=== PATIENT | male | born 1980 | race Caucasian/White ===

== ENCOUNTER 2021-03-12 03:37 | Emergency (ER) | payer OTHER ==
[2021-03-12 03:52] VITALS: BP 121/71; PULSE 62; TEMP 98.2; BMI 26.6
[2021-03-12 05:23] LABS: HEMATOCRIT 43.8 % (35.4-49); HEMOGLOBIN 15.5 GM/dL (11.7-16.9); MCH 30.4 pg (25.7-33.7); MCHC 35.4 g/dl (32.0-35.9); MEAN CELL VOLUME 85.7 fl (80-96); MEAN PLT VOLUME 9.9 fl (7.5-11.1); PLATELET COUNT 131 10^3/uL (134-434); RBC 5.11 M/mm3 (4.00-5.60); RDW 13.6 % (11.9-15.9); WHITE BLOOD COUNT 7.1 K/mm3 (4.0-10.0)
[2021-03-12 05:32] LABS: CHLORIDE 106 mmol/L (98-107); SODIUM 140 mmol/L (136-145)
[2021-03-12 05:34] LABS: ALBUMIN 3.9 g/dl (3.4-5.0); ANION GAP 7 MMOL/L (8-16); BLOOD UREA NITROGEN 15.5 mg/dL (7-18); CALCIUM 8.9 mg/dL (8.5-10.1); CO2 28 mmol/L (21-32); GLUCOSE,RANDOM 96 mg/dL (74-106)
[2021-03-12 05:38] LABS: CREATININE 0.8 mg/dL (0.55-1.3); SGOT/AST 21 U/L (15-37); SGPT/ALT 39 U/L (13-61)
[2021-03-12 05:39] LABS: BILIRUBIN,TOTAL 0.2 mg/dL (0.2-1)
[2021-03-12 05:40] LABS: TOT PROT 7.1 g/dl (6.4-8.2)
[2021-03-12 05:41] LABS: ALK PHOS 124 U/L (45-117)
== END 2021-03-12 06:15 | disposition home or self-care (01) ==
LOC: JER 03:37
DX: R00.2 Palpitations (principal)
CPT/HCPCS: 36415; 71046-TC-FY; 80053; 82550; 82553; 84484; 85027; 93005; 93010; 99285-25

== ENCOUNTER 2022-08-22 19:22 | Emergency (ER) | payer OTHER ==
[2022-08-22 19:39] VITALS: BP 108/62; PULSE 61; RESP 18; TEMP 97.7; BMI 30.9
[2022-08-22] MEDS ORDERED: DIPHTH,PERTUSS(ACELL),TET 0.5 ML DISP.SYRIN IM ONE (22:58)
[2022-08-22] MEDS ORDERED: BACITRACIN ZINC 15 GM TUBE TOPICAL OINTMENT TP ONE (22:58)
[2022-08-22] MEDS ORDERED: IBUPROFEN 600 MG TABLET (FP) PO ONE (22:58)
[2022-08-23] MEDS ORDERED: IBUPROFEN 600 MG TABLET (FP) PO ONE
[2022-08-23] MEDS ORDERED: BACITRACIN ZINC 15 GM TUBE TOPICAL OINTMENT ONE (00:01)
[2022-08-23] MEDS ORDERED: DIPHTH,PERTUSS(ACELL),TET 0.5 ML DISP.SYRIN IM ONE (00:01)
== END 2022-08-23 01:07 | disposition home or self-care (01) ==
LOC: JER 19:22
PROC: 3E0234Z Introduction of Serum, Toxoid and Vaccine into Muscle, Percutaneous Approach (ICD-10-PCS; principal; 2022-08-22)
DX: G44.319 Acute post-traumatic headache, not intractable (principal); S80.812A Abrasion, left lower leg, initial encounter; M54.2 Cervicalgia; W10.8XXA Fall (on) (from) other stairs and steps, initial encounter
CPT/HCPCS: 70450-TC; 72125-TC; 90471; 90715; 99284-25

== ENCOUNTER 2024-01-26 21:12 | Observation (INO) | payer OTHER ==
[2024-01-26 21:32] VITALS: BMI 34.0
[2024-01-26 22:38] LABS: BASO % 0.7 % (0-2.0); EOS % 1.7 % (0-4.5); HEMATOCRIT 43.2 % (35.4-49); LYMPH % 30.9 % (8-40); MCH 29.4 pg (25.7-33.7); MCHC 34.8 g/dl (32.0-35.9); MEAN CELL VOLUME 84.5 fl (80-96); MEAN PLT VOLUME 10.1 fl (7.5-11.1); MONO % 5.9 % (3.8-10.2); NEUT % 60.8 % (42.8-82.8); PLATELET COUNT 142 10^3/uL (134-434); RBC 5.11 M/mm3 (4.00-5.60); WHITE BLOOD COUNT 7.4 K/mm3 (4.0-10.0)
[2024-01-26 22:45] LABS: INR 0.96 (0.83-1.09)
[2024-01-26 22:47] LABS: ACTIVATED PTT 32.7 SECONDS (25.2-36.5)
[2024-01-26] MEDS ORDERED: ACETAMINOPHEN INJECTION 100 ML IVPB ONE (22:54)
[2024-01-26] MEDS: ACETAMINOPHEN 1000 MG/100 ML BAG IVPB ONE (22:57)
[2024-01-26] MEDS: ONDANSETRON 4 MG/2 ML VIAL IVPUSH ONE (22:57)
[2024-01-26 22:58] LABS: POTASSIUM 3.7 mmol/L (3.5-5.1)
[2024-01-26 22:59] LABS: CALCIUM 8.8 mg/dL (8.5-10.1)
[2024-01-26 23:00] LABS: ALBUMIN 3.8 g/dl (3.4-5.0); BLOOD UREA NITROGEN 19.9 mg/dL (7-18)
[2024-01-26 23:03] LABS: CREATININE 0.9 mg/dL (0.55-1.3)
[2024-01-26 23:05] LABS: BILIRUBIN,TOTAL 0.4 mg/dL (0.2-1); TOT PROT 6.8 g/dl (6.4-8.2)
[2024-01-26] MEDS ORDERED: ASPIRIN 81 MG CHEWABLE TABLETS ONE (23:35)
[2024-01-26] MEDS: ASPIRIN 81 MG CHEWABLE TABLETS PO ONE (23:37)
[2024-01-27] MEDS ORDERED: DOCUSATE SODIUM 100 MG CAPSULE (FP) PO PRN (00:01)
[2024-01-27] MEDS ORDERED: MAG HYDROX/AL HYDROX/SIMETH 30 ML UNIT-DOSE CUP PO PRN ×2 (00:02→04:00)
[2024-01-27] MEDS: MAG HYDROX/AL HYDROX/SIMETH 30 ML UNIT-DOSE CUP PO ONE (00:07)
[2024-01-27] MEDS: FAMOTIDINE 20 MG/50 ML IVPB 20 MG/50 ML MG IVPB ONE (00:07)
[2024-01-27] MEDS ORDERED: ONDANSETRON 4 MG/2 ML VIAL IVPUSH PRN (05:00)
[2024-01-27] MEDS ORDERED: ACETAMINOPHEN 1000 MG/100 ML BAG IVPB PRN (05:00)
[2024-01-27 06:39] LABS: POTASSIUM 3.8 mmol/L (3.5-5.1)
[2024-01-27 06:41] LABS: CALCIUM 8.4 mg/dL (8.5-10.1)
[2024-01-27 06:42] LABS: BLOOD UREA NITROGEN 18.7 mg/dL (7-18); MAGNESIUM 2.3 mg/dL (1.8-2.4)
[2024-01-27 06:45] LABS: CREATININE 0.8 mg/dL (0.55-1.3); PHOSPHOROUS 3.5 mg/dL (2.5-4.9)
[2024-01-27] MEDS: PANTOPRAZOLE 40 MG TABLET PO SCH (10:00)
[2024-01-27] MEDS ORDERED: PANTOPRAZOLE 40 MG TABLET PO ONE (10:00)
[2024-01-27] MEDS ORDERED: ASPIRIN COATED 81 MG TABLET.EC ONE (20:01)
[2024-01-27] MEDS: ASPIRIN COATED 81 MG TABLET.EC PO SCH (20:04)
[2024-01-28 14:13] VITALS: BP 104/57; PULSE 68; TEMP 98.2
[2024-01-28 16:09] VITALS: RESP 19
== END 2024-01-28 17:56 | disposition home or self-care (01) ==
LOC: JER 21:12 → JERBED 23:29 → J4S 01-28 03:32
PROVIDERS: ADMIT Internal Medicine; ATTEND Internal Medicine
PROC: 3E033NZ Introduction of Analgesics, Hypnotics, Sedatives into Peripheral Vein, Percutaneous Approach (ICD-10-PCS; principal; 2024-01-26)
PROC: 3E033GC Introduction of Other Therapeutic Substance into Peripheral Vein, Percutaneous Approach (ICD-10-PCS; 2024-01-26)
DX: R07.9 Chest pain, unspecified (principal); R42 Dizziness and giddiness; K21.9 Gastro-esophageal reflux disease without esophagitis; R06.02 Shortness of breath
CPT/HCPCS: 0241U-QW; 36415; 71046-TC-FY; 76700-TC; 80048; 80053; 80061; 83036; 83735; 83880; 84100; 84439; 84443; 84484; 85025; 85610; 85730; 86850; 86900; 86901; 93005; 93010; 93306-TC; 93351; 96365; 96375; 99285-25; G0378; J0131